=== PATIENT | male | born 1950 | race Caucasian/White ===

== ENCOUNTER 2019-04-01 06:12 | Day surgery (SDC) | payer MEDICARE, BC ==
[2019-03-27 17:18] LABS: BASOPHILS % (AUTO) 0.5 % (0-1); EOSINOPHILS # (AUTO) 0.1 X10'3 (0-0.9); EOSINOPHILS % (AUTO) 1.2 % (0-6); LYMPHOCYTES # (AUTO) 2.8 X10'3 (1.1-4.8); MEAN CORPUSCULAR HEMOGLOBIN 34.3 PG (27.0-31.0); MEAN CORPUSCULAR HGB CONC 34.1 g/dL (33.0-36.5); MEAN CORPUSCULAR VOLUME 100.4 FL (78-98); MEAN PLATELET VOLUME 8.7 FL (7.4-10.4); MONOCYTES % (AUTO) 11.3 % (2-12); NEUTROPHILS # (AUTO) 5.2 X10'3 (1.8-7.7); PRE OP HEMATOCRIT 38.9 % (42.0-52.0); PRE OP HEMOGLOBIN 13.3 g/dL (14.0-17.9); PRE OP PLATELET COUNT 243 X10'3 (140-440); RED BLOOD COUNT 3.87 X10'6 (4.70-6.10)
[2019-03-27 17:25] LABS: CLARITY,URINE CLEAR (Clear); COLOR,URINE YELLOW (Yellow); GLUCOSE, URINE NEGATIVE (Neg); KETONES,URINE 15 mg/dl (Neg); LEUKOCYTE ESTERASE ,URINE NEGATIVE (Neg); NITRITES, URINE NEGATIVE (Neg); OCCULT BLOOD,URINE NEGATIVE (Neg); PH,URINE 5.5 (4.8-8.0); PROTEIN,URINE NEGATIVE (Neg); UROBILINOGEN,URINE 0.2 E.U/dL (0.2-1.0)
[2019-03-27 17:27] LABS: ALBUMIN 2.9 G/DL (3.4-5.0); ALBUMIN/GLOBULIN RATIO 0.7 (1.1-1.5); ALKALINE PHOSPHATASE 62 IU/L (46-116); BLOOD UREA NITROGEN 11 MG/DL (7-18); BUN/CREATININE RATIO 19.3 (5.4-32.0); CALCIUM 9.3 MG/DL (8.5-10.1); CHLORIDE 101 MMOL/L (99-107); CREATININE 0.57 MG/DL (0.60-1.10); PRE OP ALT 64 U/L (30-65); PRE OP ANION GAP 8 (8-16); PRE OP AST 59 U/L (10-37); PRE OP BILIRUB, TOTAL 0.4 MG/DL (0.0-1.0); PRE OP GLUCOSE 78 MG/DL (70-104); PRE OP SODIUM 138 MMOL/L (135-145); TOTAL CARBON DIOXIDE 29.3 MMOL/L (24-32); TOTAL PROTEIN 7.2 G/DL (6.4-8.2); eGFR > 90 ML/MIN
[2019-03-27 17:30] LABS: UA COLLECTION TYPE NON-SPECIFIED
[~2019-04-01] VITALS: Ht 170.2 cm; Wt 56.4 kg
[2019-04-01] VITALS (13 sets, daily range): BP systolic 114–161; BP diastolic 66–96
[~2019-04-01 06:12] MED LIST: CHOL100034 PO; FISH OIL; FOLI-62 PO; GLUCOSAMINE; NAPR-996 PO; albuterol 2.5 MG/3 ML nebule NEB ONE; cefazolin/dext.iso 2gm/100 ML IV ONE; famotidine 20mg tablet PO ONE; ringers solution, lacted 1,000 ML IV SCH
[2019-04-01] MEDS ORDERED: BUPIVAcaine/PF 2.5 mg/ml (0.25%) 30ml vial ONE (06:52)
[2019-04-01] MEDS ORDERED: BUPIVACAINE liposomal/PF 13.3 MG/ML vial IM ONE (06:52)
[2019-04-01] MEDS ORDERED: fentaNYL/PF 50MCG/1 ML 2ML syringe ONE ×2 (08:49→08:58)
[2019-04-01] MEDS ORDERED: midazolam 2 mg/2 ml injection ONE (08:49)
[2019-04-01] MEDS ORDERED: ondansetron/PF 4mg/2ml inj ONE (08:59)
[2019-04-01] MEDS ORDERED: dexamethasone sod phosphate 4mg/ml inj. ONE (08:59)
[2019-04-01] MEDS ORDERED: propofol inj 20 ML IV ONE (08:59)
[2019-04-01] MEDS ORDERED: LIDOcaine 2% (20mg/ml) 5ml vial ONE (08:59)
[2019-04-01] MEDS ORDERED: morphine 10mg/ml inj. ONE (09:25)
[2019-04-01] MEDS ORDERED: metoprolol tartrate 1mg/ml inj IV ONE (09:28)
--- NOTE | 2019-04-01 09:33 | NUR ---
Received from OR via , accompanied by Anesthesiologist DR CHANCE and report given by Anesthesiolgist. DOES NOT RESPOND. LMA IN PLACE. VITALS STABLE. DRESSING DI. ABD SOFT.
--- NOTE | 2019-04-01 09:54 | NUR ---
LMA REMOVED. PT IS AWAKE AND APPROPRIATE. CHELLY PAIN.
[2019-04-01] MEDS ORDERED: meperidine/PF 25mg/ml syringe ONE (10:06)
[2019-04-01] MEDS: meperidine/PF 25mg/ml syringe IV PRN ×2 (10:13→10:24)
[2019-04-01] MEDS ORDERED: ringers solution, lacted 1,000 ML IV SCH (10:13)
[2019-04-01] MEDS ORDERED: morphine 4 MG/ML inj SYRINge IV PRN ×2 (10:15)
[2019-04-01] MEDS ORDERED: meperidine/PF 25mg/ml syringe IV PRN ×2 (10:15)
[2019-04-01] MEDS ORDERED: ondansetron/PF 4mg/2ml inj IV PRN (10:15)
[2019-04-01] MEDS ORDERED: proCHLORperazine 10 MG/2 ml inj IV PRN (10:15)
--- NOTE | 2019-04-01 12:23 | NUR ---
AWAKE AND ORIENTED. VITALS STABLE. DRESSING DI. STATES PAIN IMPROVING. HOME WITH HIS AT THIS TIME.
== END 2019-04-01 12:23 | disposition home or self-care (01) ==
LOC: PAS 06:12
PROVIDERS: ATTEND Surgery
DX: K64.3 Fourth degree hemorrhoids (principal); F17.210 Nicotine dependence, cigarettes, uncomplicated; M19.90 Unspecified osteoarthritis, unspecified site; Z79.899 Other long term (current) drug therapy; Z98.890 Other specified postprocedural states
CPT/HCPCS: 36415; 46255; 80053; 81003; 82948; 85025; 93005; A6224; C9290; J1100; J2001; J2175; J2250; J2270; J2405; J2704; J3010; J3490; 88304; A4215; A4618; A6449; A7000; J7120